=== PATIENT | male | born 1990 | race Caucasian/White ===

== ENCOUNTER 2025-05-11 02:27 | Inpatient (IN) | payer OTHER ==
[~2025-05-11] VITALS: Ht 167.6 cm; Wt 81.4 kg
[2025-05-11 03:25] LABS: PLATELET COUNT, AUTOMATED 196 10^3/uL (150-450)
[2025-05-11 03:59] LABS: AMPHETAMINES LEVEL URINE NEGATIVE (NEGATIVE); BARBITURATES URINE NEGATIVE (NEGATIVE); BENZODIAZEPINES URINE NEGATIVE (NEGATIVE); CANNABINOIDS URINE NEGATIVE (NEGATIVE); COCAINE METABOLITE URINE NEGATIVE (NEGATIVE); METHADONE URINE NEGATIVE (NEGATIVE); OPIATES URINE NEGATIVE (NEGATIVE); PHENCYCLIDINE URINE NEGATIVE (NEGATIVE)
[2025-05-11 04:36] LABS: ETHYL ALCOHOL (ETHANOL) 0.177 % (0.000-0.010)
[2025-05-11 04:38] LABS: SALICYLATE LEVEL < 3.0 MG/DL (<30)
[2025-05-11 04:39] LABS: ALT/SGPT 52 U/L (7.0-40); AST/SGOT 38 U/L (<34); CALCIUM LEVEL 8.3 MG/DL (8.5-10.1); CARBON DIOXIDE LEVEL 24 MMOL/L (20-31); CHLORIDE LEVEL 107 MMOL/L (98-107); CREATININE FOR GFR 1.01 MG/DL (0.70-1.30); GLOMERULAR FILTRATION RATE > 90.0 (>60); POTASSIUM SERUM 4.3 MMOL/L (3.5-5.1); SODIUM LEVEL 142 MMOL/L (136-145)
[2025-05-11] MEDS ORDERED: traZODone 50 MG TAB PO PRN (06:45)
[2025-05-11] MEDS ORDERED: IBUPROFEN 400 MG TAB PO PRN (06:45)
[2025-05-11] MEDS ORDERED: ACETAMINOPHEN 325 MG TAB PO PRN (06:45)
[2025-05-11] MEDS ORDERED: MAALOX 30 ML SUSP *UDC PO PRN (06:45)
[2025-05-11] MEDS ORDERED: MOM 30 ML SUSPENSION UDC PO PRN (06:45)
[2025-05-11] MEDS ORDERED: HOME MED LIST COMPLETE! XX SCH (07:15)
[2025-05-11 14:30] VITALS: BP 137/86; TEMP 97.4; O2SAT 99
[2025-05-12 06:10] VITALS: BP 144/87; TEMP 97; O2SAT 98
[2025-05-12 16:21] VITALS: BP 132/82; TEMP 98.1; O2SAT 98
[2025-05-12] MEDS: MIRTAZAPINE 15 MG TAB PO SCH (20:50)
[2025-05-13 07:03] VITALS: BP 129/78; TEMP 97.5; O2SAT 98
[2025-05-13 15:11] VITALS: BP 120/74; TEMP 98; O2SAT 98
[2025-05-14 06:42] VITALS: BP 135/86; TEMP 97.3; O2SAT 98
[2025-05-14 15:19] VITALS: BP 134/71; TEMP 97.3; O2SAT 99
[2025-05-15 06:33] VITALS: BP 134/83; TEMP 98.5; O2SAT 100
[2025-05-15 15:39] VITALS: BP 138/73; TEMP 97.8; O2SAT 96
[2025-05-16] MEDS ORDERED: HYDR-3363 PO (00:12)
[2025-05-16] MEDS ORDERED: MIRT-10 PO (00:12)
[2025-05-16 06:45] VITALS: BP 126/88; TEMP 97.6; O2SAT 97
== END 2025-05-16 12:49 | disposition home or self-care (01) | DRG 880 ==
LOC: M ED 02:27 → M ED INP 06:43 → M PSY 09:43
PROVIDERS: ADMIT Student in an Organized Health Care Education/Training Program; ATTEND Student in an Organized Health Care Education/Training Program
DX: F41.1 Generalized anxiety disorder (principal); F10.130 Alcohol abuse with withdrawal, uncomplicated; R45.851 Suicidal ideations; F10.120 Alcohol abuse with intoxication, uncomplicated; F32.A Depression, unspecified; F43.10 Post-traumatic stress disorder, unspecified; Z91.82 Personal history of military deployment; Z56.4 Discord with boss and workmates